=== PATIENT | male | born 1985 | race Caucasian/White ===

== ENCOUNTER 2024-12-05 06:51 | Day surgery (SDC) | payer OTHER ==
[~2024-12-05] VITALS: Ht 177.8 cm; Wt 100.0 kg
[2024-12-05] MEDS ORDERED: EPINEPHrine 1:1,000 [1 MG/ML] VIAL ET ONE (06:52)
[2024-12-05] MEDS ORDERED: BENZOCAINE 20% 50 MCG/SPRAY 57 GM TP ONE (06:52)
[2024-12-05] MEDS ORDERED: LIDOCAINE 4% 50 ML SOLUTION TP ONE (06:52)
[2024-12-05] MEDS ORDERED: LIDOCAINE 2% 11 ML JELLY TP ONE (06:52)
[2024-12-05] MEDS ORDERED: CHOL500013 PO (07:11)
[2024-12-05] MEDS ORDERED: FLUT12AE3 IH (07:11)
[2024-12-05] MEDS ORDERED: ISON300T89 PO (07:11)
[2024-12-05] MEDS ORDERED: MONT-40 PO (07:11)
[2024-12-05] MEDS: SODIUM CHLORIDE 0.9% 1,000 ML IV ONE (07:40)
[2024-12-05] MEDS ORDERED: MIDAZOLAM HCL 2 MG/2 ML VIAL ONE (07:47)
[2024-12-05] MEDS ORDERED: FentaNYL CITRATE PF 100 MCG/2 ML VIAL ONE (07:47)
[2024-12-05 09:05] VITALS: PULSE 84; RESP 18; O2SAT 100
[2024-12-05] MEDS ORDERED: MethylPREDNISolone SOD SUCC 125 MG/2 ML VIAL ONE (09:38)
[2024-12-05] MEDS ORDERED: MethylPREDNISolone SOD SUCC 125 MG/2 ML VIAL IVP ONE (09:45)
== END 2024-12-05 12:10 | disposition home or self-care (01) ==
LOC: SURGERY 06:51
PROVIDERS: ATTEND Internal Medicine Critical Care Medicine
DX: R05.3 Chronic cough (principal); R04.2 Hemoptysis; J38.4 Edema of larynx; B37.0 Candidal stomatitis; E11.9 Type 2 diabetes mellitus without complications; Z79.899 Other long term (current) drug therapy
CPT/HCPCS: 31623; 87206; 87101; 87220; 87070; 31624; 71045; 87015; J0171; J3010; J2250; J2919; 87186; 88108; Z7610